=== PATIENT | female | born 1995 ===

== ENCOUNTER → 2019-03-08 | Outpatient (CLI) | payer OTHER | END | disposition home or self-care (01) | LOC: NST 16:44 | DX: Z34.83 Encounter for supervision of other normal pregnancy, third trimester (principal) ==

== ENCOUNTER 2019-04-07 16:03 | Inpatient (IN) | payer OTHER ==
[~2019-04-07] VITALS: Ht 162.6 cm; Wt 65.3 kg
[2019-05-03] MEDS ORDERED: VALTREX1000 MG PO (08:28)
[2019-05-03] MEDS ORDERED: PRENATAL TABLE1 EAC3 PO (08:29)
[2019-05-03] MEDS ORDERED: MAXFE CAPLET1 EACH PO (08:29)
== END 2019-05-05 16:06 | DRG 807 ==
LOC: OB/GYN 04-22 15:32 → LDR 05-03 06:36 → OB/GYN 05-03 13:03
PROVIDERS: ADMIT Obstetrics & Gynecology Maternal & Fetal Medicine
PROC: 10E0XZZ Delivery of Products of Conception, External Approach (ICD-10-PCS; principal; 2019-05-03)
PROC: 4A1HXCZ Monitoring of Products of Conception, Cardiac Rate, External Approach (ICD-10-PCS; 2019-05-03)
DX: O80 Encounter for full-term uncomplicated delivery (principal); Z37.0 Single live birth; Z3A.39 39 weeks gestation of pregnancy; Z22.330 Carrier of Group B streptococcus

== ENCOUNTER 2019-05-02 15:12 | Outpatient (CLI) | payer OTHER ==
[2019-05-03] MEDS ORDERED: VALTREX1000 MG PO (08:28)
[2019-05-03] MEDS ORDERED: PRENATAL TABLE1 EAC3 PO (08:29)
[2019-05-03] MEDS ORDERED: MAXFE CAPLET1 EACH PO (08:29)
== END 2019-05-02 17:10 | disposition home or self-care (01) ==
LOC: NST 15:12
DX: Z34.83 Encounter for supervision of other normal pregnancy, third trimester (principal)

== ENCOUNTER → 2020-04-08 | Emergency (ER) | payer OTHER ==
[~2020-04-08] VITALS: Ht 167.6 cm; Wt 50.3 kg
[~2020-04-08] MED LIST: CEPHALEXIN; MAXFE CAPLET1 EACH PO; OCUFLOX5 ML; PRENATAL TABLE1 EAC3 PO; VALTREX1000 MG PO; [UNRECOGNIZED DRUG - OTHER]
== END | disposition left against medical advice (07) ==
LOC: ER 13:55
DX: Z53.20 Procedure and treatment not carried out because of patient's decision for unspecified reasons (principal)

== ENCOUNTER 2022-02-24 14:24 | Outpatient (CLI) | payer OTHER | END 2022-02-24 15:00 | disposition home or self-care (01) | LOC: SONOGRAMA 14:24 | PROVIDERS: ATTEND Obstetrics & Gynecology | DX: N63.21 Unspecified lump in the left breast, upper outer quadrant (principal); N63.12 Unspecified lump in the right breast, upper inner quadrant ==